=== PATIENT | male | born 1985 | race Caucasian/White ===

== ENCOUNTER 2022-07-30 07:20 | Emergency (ER) | payer OTHER ==
[2022-07-30 07:27] VITALS: BP 156/116
--- NOTE | 2022-07-30 07:28 | ED Physician Documentation ---
PD HPI MALE - Stated complaint Stated Complaint: MALE GI - Chief complaint Chief Complaint: Wound - History obtained from History obtained from: Patient - History of Present Illness Timing - onset: Yesterday Timing - duration: Days (1 day progression with much more tender this morning.) Timing - details: Abrupt onset, Still present Associated symptoms: Other (denies constipation nor injury to the area.). No: Abdominal pain, Back pain Similar symptoms before: Diagnosis (prior thrombosed hemorrhoid post operative with opioid use and got constipated.) Recently seen: Not recently seen Review of Systems GI: denies: Abdominal Pain, Nausea, Constipation, Diarrhea Skin: denies: Rash, Lesions PD PAST MEDICAL HISTORY - Past Medical History Cardiovascular: None Respiratory: None GI: None - Present Medications Home Medications: Ambulatory Orders Medication Instructions Recorded Confirmed No Known Home Medications 07/30/22 07/30/22 - Allergies Allergies/Adverse Reactions: Allergies Allergy/AdvReac Type Severity Reaction Status Date / Time No Known Drug Allergies Allergy Verified 07/30/22 07:27 PD ED PE NORMAL - Vitals Vital signs reviewed: Yes - General General: Alert and oriented X 3, Well developed/nourished, Other (uncomfortable sitting, so is lying to side. ) - Male Male : Deferred - Rectal Rectal: Other (There is a firm area of subcutaneous tenderness and swelling on the left perirectal area with engorged and purple hemorrhoidal vein about 1 cm.) - Derm Derm: Normal color Results - Vitals Vitals: Vital Signs - 24 hr 07/30/22 07:25 Temperature 36.8 C Heart Rate 88 Respiratory 20 Rate Blood Pressure 156/116 H O2 Saturation 99 Oxygen O2 Source Room air Procedures - General procedure General procedure: Local anesthetic with 1% lidocaine and epinephrine to the thrombosed hemorrhoid roof. #11 scalpel was used to slight open the area and a clot was extruded from the area. It then felt decompressed and not firm. Much less tender. PD MEDICAL DECISION MAKING - ED course Complexity details: considered differential (Thrombosed hemorrhoid without any indication of infection or abscess. It was lanced without problems.), d/w patient Departure - Departure Disposition: 01 Home, Self Care Clinical Impression: Thrombosed external hemorrhoid Condition: Stable Record reviewed to determine appropriate education?: Yes Instructions: Hemorrhoids Thrombosed Follow-Up: MARK HAMILTON, DO [Primary Care Provider] - Comments: Moist compress to the area 2-3 times daily or a warm soak/bath to promote continued good flow through the veins. You can use hydrocortisone cream to the area or other anti-hemorrhoidal topical cream twice daily for a few days to help with the remaining hemorrhoid inflammation. This should heal over the next few days. The lanced incision will be a bit tender for few days as it heals as well. Recheck if not fully improved over the next few days.
== END 2022-07-30 07:55 | disposition home or self-care (01) ==
LOC: ED 07:20
DX: K64.5 Perianal venous thrombosis (principal)
CPT/HCPCS: 46083